=== PATIENT | female | born 1960 ===

== ENCOUNTER 2020-01-05 23:06 | Inpatient (IN) ==
[2020-01-05] MEDS ORDERED: SODIUM CHLORIDE 0.9% 1,000 ML IV STA (23:36)
[2020-01-05 23:49] LABS: Basophils % 0.2 % (0.0-0.8); Eosinophils # 0.1 10*3/uL (0.0-0.87); Eosinophils % 0.6 % (0.00-10.9); Hematocrit 25.7 VOL% (35.7-47.0); Hemoglobin 9.2 GM/DL (12.0-16.0); Immature Granulocytes % 3.3 %; Lymphocytes # 1.5 10*3/uL (1.4-4.0); Lymphocytes % 8.4 % (21.3-54.2); Mean Corpuscular HGB Conc 35.8 GM/DL (32-36); Mean Corpuscular Volume 102.4 FL (87-102); Mean Platelet Volume 10.6 FL (9.6-12.0); Monocytes % 4.7 % (1.7-12.7); Neutrophils % 82.8 % (38.7-73.9); Red Blood Count 2.51 MC/CUMM (3.8-5.5); Red Cell Distribution Width 17.5 % (9.3-17.3); White Blood Count 17.9 T/CUMM (4-12)
[2020-01-06 00:01] LABS: Platelet Count 98 T/CUMM (130-400)
[2020-01-06 00:07] LABS: Alanine Aminotransferase 54 U/L (13-56); Alkaline Phosphatase 200 U/L (45-117); Amylase 22 U/L (25-115); Aspartate Amino Transferase 87 U/L (0-37); Blood Urea Nitrogen 95 MG/DL (7-18); Estimated Glom Filtration Rate 10 ML/MIN; Glucose 119 MG/DL (74-106); Osmolality,Calculated 317.7 MOS/KG (273-304); Total Protein 7.6 G/DL (6.4-8.3); Troponin I < 0.015 NG/ML (0.00-0.045)
[2020-01-06 00:13] LABS: INR 2.2; PT Patient Result 23.1 SECS (9.8-11.9); Partial Thromboplastin Time 60.7 SECS (23.9-33.8)
[2020-01-06] MEDS ORDERED: cefTRIAXone 1,000 MG in SODIUM CHLORIDE 0.9% 100 ML IV STA ×2 (01:46→02:58)
[2020-01-06 02:43] LABS: Bacteria,Urine Occasional /HPF (Few); Bilirubin,Urine Moderate mg/dL (Negative); Blood, Urine Small mg/dL (Negative); Glucose,Urine (UA) Negative (Negative); Ketones,Urine Negative (Negative); Mucus,Urine Occasional /LPF (Occasional); Nitrite,Urine Negative (Negative); Protein,Urine Negative; RBC,Urine 1 /HPF (0-4); Squamous Epithelial Cell,Urine Occasional /HPF (0-10); Urine Appearance CLEAR (Clear); Urine Color Amber (Yellow); Urine Specific Gravity 1.014 (1.001-1.035); WBC,Urine 1 /HPF (0-6)
[2020-01-06] MEDS ORDERED: DEXTROSE 50% 25 GM/50 ML VIAL IV PRN (02:51)
[2020-01-06] MEDS ORDERED: GLUCAGON 1 MG VIAL IM PRN (02:51)
[2020-01-06] MEDS ORDERED: PHYTONADIONE 10 MG/1 ML AMP SUBCUT ONE (02:57)
[2020-01-06 03:05] LABS: Barbiturates Screen,Urine Negative (Negative); Benzodiazepines Screen,Urine Positive (Negative); Cannabinoid Screen,Urine Negative (Negative); Opiate Screen,Urine Negative (Negative); Phencyclidine Screen,Urine Negative (Negative)
[2020-01-06] MEDS ORDERED: SODIUM CHLORIDE 0.9% 1,000 ML IV SCH (03:30)
[2020-01-06 03:50] LABS: Segmented Neutrophils 83 % (50-85); Total Cells Counted 100
[2020-01-06 03:51] LABS: Band Neutrophils 2 % (0-10); Lymphocytes 9 % (20-55); Metamyelocytes 2 %
[2020-01-06] MEDS: SODIUM CHLOR 0.9% KCL 20 MEQ 20 MEQ/1,000 ML BAG IV SCH ×2 (04:41→14:51)
[2020-01-06 05:33] LABS: Basophils % 0.2 % (0.0-0.8); Eosinophils # 0.1 10*3/uL (0.0-0.87); Eosinophils % 0.6 % (0.00-10.9); Hematocrit 24.2 VOL% (35.7-47.0); Hemoglobin 8.8 GM/DL (12.0-16.0); Immature Granulocytes Absolute 0.52 #; Lymphocytes # 1.6 10*3/uL (1.4-4.0); Mean Corpuscular HGB Conc 36.4 GM/DL (32-36); Mean Corpuscular Volume 103.9 FL (87-102); Mean Platelet Volume 11.1 FL (9.6-12.0); Monocytes % 4.8 % (1.7-12.7); NRBC # 0.02 10*3/uL; Neutrophils % 82.4 % (38.7-73.9); Red Blood Count 2.33 MC/CUMM (3.8-5.5); Red Cell Distribution Width 17.7 % (9.3-17.3); White Blood Count 17.4 T/CUMM (4-12)
[2020-01-06 05:42] LABS: Platelet Count 81 T/CUMM (130-400)
[2020-01-06 06:03] LABS: Band Neutrophils 2 % (0-10); Hypochromasia 1+; Lymphocytes 3 % (20-55); Platelet Estimate Decreased; Segmented Neutrophils 90 % (50-85); Total Cells Counted 100
[2020-01-06 06:15] LABS: Albumin 1.8 G/DL (3.4-5.0); Bilirubin,Direct 21.13 MG/DL (0.0-0.20); Osmolality,Calculated 314.8 MOS/KG (273-304); Total Protein 7.1 G/DL (6.4-8.3)
[2020-01-06 06:16] LABS: Bilirubin,Indirect 4.2 MG/DL (0.0-1.0); Bilirubin,Total 25.3 MG/DL (0.2-1.0)
[2020-01-06 06:21] LABS: INR 2.4; PT Patient Result 24.5 SECS (9.8-11.9); Partial Thromboplastin Time 69.7 SECS (23.9-33.8)
[2020-01-06] MEDS ORDERED: PANTOPRAZOLE 40 MG VIAL IV SCH (09:00)
[2020-01-06 13:02] LABS: Hepatitis B Core IgM Quant 0.08 Index; Hepatitis B Surface Ag Quant < 0.10 Index; Hepatitis B Surface Ag Result Negative (Negative); Hepatitis C Virus Ab Quant 0.12 Index; Hepatitis C Virus Ab Result Negative (Negative)
[2020-01-06] MEDS: PHYTONADIONE 10 MG/1 ML AMP SUBCUT SCH (14:21)
[2020-01-06] MEDS ORDERED: ACETYLCYSTEINE IV ONE ×2 (15:00→16:00)
[2020-01-06] MEDS ORDERED: DEXTROSE 5% IV ONE ×2 (15:00→16:00)
[2020-01-06] MEDS ORDERED: ACETYLCYSTEINE INJ 6,000 MG in DEXTROSE 5% 1,000 ML IV ONE (20:00)
[2020-01-07] MEDS: ONDANSETRON 4 MG/2 ML VIAL IV PRN ×2 (00:12→19:06)
[2020-01-07] MEDS ORDERED: cefTRIAXone 2,000 MG in SYRINGE 1 EACH IV SCH (04:00)
[2020-01-07 05:26] LABS: Basophils # 0.1 10*3/uL (0.0-0.2); Basophils % 0.3 % (0.0-0.8); Eosinophils # 0.2 10*3/uL (0.0-0.87); Eosinophils % 0.9 % (0.00-10.9); Hematocrit 24.5 VOL% (35.7-47.0); Hemoglobin 8.8 GM/DL (12.0-16.0); Immature Granulocytes % 4.3 %; Immature Granulocytes Absolute 0.79 #; Lymphocytes # 1.4 10*3/uL (1.4-4.0); Lymphocytes % 7.3 % (21.3-54.2); Mean Corpuscular HGB Conc 35.9 GM/DL (32-36); Mean Corpuscular Volume 102.5 FL (87-102); Mean Platelet Volume 10.2 FL (9.6-12.0); Monocytes % 5.6 % (1.7-12.7); Neutrophils % 81.6 % (38.7-73.9); Platelet Count 87 T/CUMM (130-400); Red Blood Count 2.39 MC/CUMM (3.8-5.5); Red Cell Distribution Width 17.8 % (9.3-17.3); White Blood Count 18.6 T/CUMM (4-12)
[2020-01-07 05:36] LABS: INR 2.3; PT Patient Result 23.9 SECS (9.8-11.9); Partial Thromboplastin Time 61.9 SECS (23.9-33.8)
[2020-01-07 05:48] LABS: Hypochromasia 1+; Lymphocytes 3 % (20-55); Segmented Neutrophils 95 % (50-85); Total Cells Counted 100
[2020-01-07 05:49] LABS: Macrocytosis 1+; Platelet Estimate Decreased; Target Cells Few
[2020-01-07 05:52] LABS: Albumin 1.7 G/DL (3.4-5.0); Calcium 8.9 MG/DL (8.5-10.1); Total Protein 6.8 G/DL (6.4-8.3)
[2020-01-07 05:59] LABS: Bilirubin,Total 28.2 MG/DL (0.2-1.0)
[2020-01-07] MEDS: CIPROFLOXACIN INJ 400 MG in PREMIX 1 EACH IV SCH (06:13)
[2020-01-07] MEDS: SODIUM CHLORIDE 0.9% 1,000 ML IV SCH (07:22)
[2020-01-07] MEDS ORDERED: ETOMIDATE 20 MG/10 ML VIAL IV ONE (07:31)
[2020-01-07] MEDS ORDERED: ONDANSETRON 4 MG/2 ML VIAL ONE (07:31)
[2020-01-07] MEDS ORDERED: LIDOCAINE 2% 5 ML VIAL ONE (07:31)
[2020-01-07] MEDS ORDERED: propofoL 200 MG/20 ML VIAL IV ONE (07:31)
[2020-01-07] MEDS: PANTOPRAZOLE 40 MG VIAL IV SCH ×2 (09:03→20:45)
[2020-01-07] MEDS: PHYTONADIONE 10 MG/1 ML AMP SUBCUT SCH (09:04)
[2020-01-07] MEDS: metroNIDAZOLE INJ 500 MG in PREMIX 1 EACH IV SCH ×2 (09:48→17:03)
[2020-01-07] MEDS: POTASSIUM CHLORIDE INJ 30 MEQ in DEXTROSE 5% 1,000 ML IV SCH (14:34)
[2020-01-08] MEDS: metroNIDAZOLE INJ 500 MG in PREMIX 1 EACH IV SCH (01:56)
[2020-01-08] MEDS: CIPROFLOXACIN INJ 400 MG in PREMIX 1 EACH IV SCH (06:54)
[2020-01-08 07:12] LABS: Basophils # 0.1 10*3/uL (0.0-0.2); Basophils % 0.3 % (0.0-0.8); Eosinophils # 0.2 10*3/uL (0.0-0.87); Hematocrit 22.6 VOL% (35.7-47.0); Hemoglobin 7.9 GM/DL (12.0-16.0); Immature Granulocytes % 5.3 %; Immature Granulocytes Absolute 1.02 #; Lymphocytes % 10.3 % (21.3-54.2); Mean Corpuscular Volume 103.7 FL (87-102); Mean Platelet Volume 11.1 FL (9.6-12.0); Monocytes % 8.2 % (1.7-12.7); NRBC # 0.02 10*3/uL; Neutrophils % 74.9 % (38.7-73.9); Platelet Count 61 T/CUMM (130-400); Red Blood Count 2.18 MC/CUMM (3.8-5.5); Red Cell Distribution Width 18.2 % (9.3-17.3); White Blood Count 19.2 T/CUMM (4-12)
[2020-01-08 07:36] LABS: INR 2.1; PT Patient Result 21.5 SECS (9.8-11.9)
[2020-01-08 07:48] LABS: Albumin 1.4 G/DL (3.4-5.0); Bilirubin,Direct 19.02 MG/DL (0.0-0.20); Calcium 7.8 MG/DL (8.5-10.1); Osmolality,Calculated 309.8 MOS/KG (273-304); Total Protein 5.5 G/DL (6.4-8.3)
[2020-01-08] MEDS ORDERED: SODIUM CHLORIDE 0.9% 1,000 ML IV PRN ×2 (07:51→08:00)
[2020-01-08 07:52] LABS: Band Neutrophils 1 % (0-10); Lymphocytes 15 % (20-55); Segmented Neutrophils 82 % (50-85); Total Cells Counted 100
[2020-01-08 07:53] LABS: Acanthocytes Few; Polychromasia Few
[2020-01-08 07:55] LABS: Burr Cells 1+; Hypochromasia 1+; Platelet Estimate Adequate
[2020-01-08] MEDS: POTASSIUM CHLORIDE INJ 30 MEQ in DEXTROSE 5% 1,000 ML IV SCH (10:07)
[2020-01-08] MEDS: PHYTONADIONE 10 MG/1 ML AMP SUBCUT SCH (10:08)
[2020-01-08] MEDS: SODIUM CHLORIDE 0.9% 1,000 ML IV SCH (10:08)
[2020-01-08] MEDS: PANTOPRAZOLE 40 MG VIAL IV SCH ×2 (10:08→21:03)
[2020-01-08] MEDS: MEROPENEM 500 MG in SODIUM CHLORIDE 0.9% 100 ML IV SCH ×2 (10:16→21:02)
[2020-01-08 19:07] LABS: Hematocrit 28.3 VOL% (35.7-47.0); Hemoglobin 10.1 GM/DL (12.0-16.0)
[2020-01-09 05:25] LABS: Basophils # 0.1 10*3/uL (0.0-0.2); Basophils % 0.5 % (0.0-0.8); Eosinophils # 0.3 10*3/uL (0.0-0.87); Eosinophils % 1.5 % (0.00-10.9); Hematocrit 27.1 VOL% (35.7-47.0); Hemoglobin 9.9 GM/DL (12.0-16.0); Immature Granulocytes % 4.9 %; Immature Granulocytes Absolute 0.81 #; Lymphocytes # 1.2 10*3/uL (1.4-4.0); Lymphocytes % 7.2 % (21.3-54.2); Mean Corpuscular HGB Conc 36.5 GM/DL (32-36); Mean Corpuscular Volume 94.1 FL (87-102); NRBC # 0.02 10*3/uL; Neutrophils % 78.9 % (38.7-73.9); Red Blood Count 2.88 MC/CUMM (3.8-5.5); Red Cell Distribution Width 19.2 % (9.3-17.3); White Blood Count 16.6 T/CUMM (4-12)
[2020-01-09 05:27] LABS: Platelet Count 49 T/CUMM (130-400)
[2020-01-09] MEDS: POTASSIUM CHLORIDE INJ 30 MEQ in DEXTROSE 5% 1,000 ML IV SCH ×2 (05:52→08:55)
[2020-01-09 05:58] LABS: Band Neutrophils 1 % (0-10); Eosinophils 1 % (0-10); Lymphocytes 5 % (20-55); Segmented Neutrophils 87 % (50-85); Total Cells Counted 100
[2020-01-09 05:59] LABS: Hypochromasia 1+
[2020-01-09 06:00] LABS: Calcium 8.6 MG/DL (8.5-10.1); Osmolality,Calculated 303.5 MOS/KG (273-304)
[2020-01-09 06:01] LABS: Macrocytosis 1+
[2020-01-09 06:03] LABS: Burr Cells Slight
[2020-01-09 06:04] LABS: Acanthocytes Few; Platelet Estimate Decreased
[2020-01-09 06:07] LABS: Albumin 1.7 G/DL (3.4-5.0); Calcium 8.6 MG/DL (8.5-10.1); Osmolality,Calculated 301.5 MOS/KG (273-304)
[2020-01-09] MEDS: PHYTONADIONE 10 MG/1 ML AMP SUBCUT SCH (08:56)
[2020-01-09] MEDS: MEROPENEM 500 MG in SODIUM CHLORIDE 0.9% 100 ML IV SCH ×2 (08:56→21:48)
[2020-01-09] MEDS: PANTOPRAZOLE 40 MG VIAL IV SCH ×2 (08:56→21:48)
[2020-01-09] MEDS: SODIUM CHLORIDE 0.9% 1,000 ML IV SCH (08:57)
[2020-01-10] MEDS: POTASSIUM CHLORIDE INJ 30 MEQ in DEXTROSE 5% 1,000 ML IV SCH ×3 (04:23→22:20)
[2020-01-10] MEDS: SODIUM CHLORIDE 0.9% 1,000 ML IV SCH ×2 (05:12→10:22)
[2020-01-10 06:32] LABS: INR 2.2; PT Patient Result 23.1 SECS (9.8-11.9)
[2020-01-10 06:46] LABS: Albumin 1.8 G/DL (3.4-5.0); Calcium 9.3 MG/DL (8.5-10.1); Osmolality,Calculated 292.4 MOS/KG (273-304); Total Protein 6.4 G/DL (6.4-8.3)
[2020-01-10 07:09] LABS: Osmolality,Calculated 294.2 MOS/KG (273-304)
[2020-01-10 07:28] LABS: Bilirubin,Total 28.2 MG/DL (0.2-1.0)
[2020-01-10 08:17] LABS: Basophils # 0.1 10*3/uL (0.0-0.2); Basophils % 0.4 % (0.0-0.8); Eosinophils # 0.2 10*3/uL (0.0-0.87); Eosinophils % 1.5 % (0.00-10.9); Hematocrit 28.5 VOL% (35.7-47.0); Hemoglobin 10.3 GM/DL (12.0-16.0); Immature Granulocytes % 6.7 %; Immature Granulocytes Absolute 1.11 #; Lymphocytes # 1.2 10*3/uL (1.4-4.0); Lymphocytes % 7.2 % (21.3-54.2); Mean Corpuscular HGB Conc 36.1 GM/DL (32-36); Mean Corpuscular Volume 94.4 FL (87-102); Mean Platelet Volume 11.6 FL (9.6-12.0); Monocytes % 7.4 % (1.7-12.7); NRBC # 0.02 10*3/uL; Neutrophils % 76.8 % (38.7-73.9); Red Blood Count 3.02 MC/CUMM (3.8-5.5); Red Cell Distribution Width 19.6 % (9.3-17.3); White Blood Count 16.5 T/CUMM (4-12)
[2020-01-10 08:18] LABS: Platelet Count 48 T/CUMM (130-400)
[2020-01-10 09:34] LABS: Band Neutrophils 2 % (0-10); Lymphocytes 4 % (20-55); Metamyelocytes 1 %; Segmented Neutrophils 86 % (50-85); Total Cells Counted 100
[2020-01-10 09:35] LABS: Burr Cells Few; Macrocytosis 1+
[2020-01-10 09:36] LABS: Hypochromasia 2+; Platelet Estimate Decreased; Target Cells Slight
[2020-01-10] MEDS: PANTOPRAZOLE 40 MG VIAL IV SCH ×2 (10:22→22:21)
[2020-01-10] MEDS: MEROPENEM 500 MG in SODIUM CHLORIDE 0.9% 100 ML IV SCH ×2 (10:22→22:21)
[2020-01-10] MEDS: LACTULOSE 20 GM/30 ML UDCUP PO SCH ×2 (12:52→22:20)
[2020-01-11] MEDS: POTASSIUM CHLORIDE INJ 30 MEQ in DEXTROSE 5% 1,000 ML IV SCH ×2 (06:20→15:23)
[2020-01-11 06:27] LABS: Basophils # 0.1 10*3/uL (0.0-0.2); Basophils % 0.4 % (0.0-0.8); Eosinophils # 0.3 10*3/uL (0.0-0.87); Eosinophils % 1.4 % (0.00-10.9); Hematocrit 28.4 VOL% (35.7-47.0); Hemoglobin 10.2 GM/DL (12.0-16.0); Immature Granulocytes % 7.6 %; Immature Granulocytes Absolute 1.41 #; Lymphocytes # 1.1 10*3/uL (1.4-4.0); Lymphocytes % 5.7 % (21.3-54.2); Mean Corpuscular HGB Conc 35.9 GM/DL (32-36); Mean Corpuscular Volume 94.7 FL (87-102); Mean Platelet Volume 11.3 FL (9.6-12.0); Monocytes % 8.2 % (1.7-12.7); Neutrophils % 76.7 % (38.7-73.9); Platelet Count 45 T/CUMM (130-400); Red Cell Distribution Width 19.3 % (9.3-17.3); White Blood Count 18.5 T/CUMM (4-12)
[2020-01-11 06:36] LABS: INR 1.9; PT Patient Result 19.8 SECS (9.8-11.9); Partial Thromboplastin Time 73.2 SECS (23.9-33.8)
[2020-01-11 06:42] LABS: Calcium 9.3 MG/DL (8.5-10.1); Osmolality,Calculated 292.5 MOS/KG (273-304)
[2020-01-11 06:51] LABS: Eosinophils 3 % (0-10); Lymphocytes 2 % (20-55); Metamyelocytes 1 %; Segmented Neutrophils 89 % (50-85); Total Cells Counted 100
[2020-01-11 06:52] LABS: Hypochromasia 2+
[2020-01-11 06:53] LABS: Macrocytosis 1+; Target Cells Slight
[2020-01-11 06:54] LABS: Anisocytosis 1+; Burr Cells Few
[2020-01-11 06:55] LABS: Platelet Estimate Decreased; Spherocytes Slight
[2020-01-11] MEDS: SODIUM CHLORIDE 0.9% 1,000 ML IV SCH (08:53)
[2020-01-11] MEDS: PANTOPRAZOLE 40 MG VIAL IV SCH ×2 (08:54→21:26)
[2020-01-11] MEDS: LACTULOSE 20 GM/30 ML UDCUP PO SCH ×2 (08:54→21:25)
[2020-01-11] MEDS: MEROPENEM 500 MG in SODIUM CHLORIDE 0.9% 100 ML IV SCH ×2 (08:54→21:28)
[2020-01-11] MEDS ORDERED: SODIUM CHLORIDE 0.9% 1,000 ML IV PRN (09:48)
[2020-01-11 10:07] LABS: Albumin 1.8 G/DL (3.4-5.0); Bilirubin,Direct 13.72 MG/DL (0.0-0.20); Bilirubin,Indirect 12.9 MG/DL (0.0-1.0); Total Protein 7.1 G/DL (6.4-8.3)
[2020-01-11 10:10] LABS: Bilirubin,Total 26.6 MG/DL (0.2-1.0)
[2020-01-11 15:13] LABS: Neutrophils,Peritoneal Fluid 85 %
[2020-01-11 15:14] LABS: RBC,Peritoneal Fluid 3346 T/CUMM
[2020-01-12 06:14] LABS: Basophils % 0.3 % (0.0-0.8); Eosinophils # 0.4 10*3/uL (0.0-0.87); Eosinophils % 2.4 % (0.00-10.9); Hematocrit 24.4 VOL% (35.7-47.0); Immature Granulocytes % 7.5 %; Immature Granulocytes Absolute 1.16 #; Lymphocytes # 1.2 10*3/uL (1.4-4.0); Lymphocytes % 7.6 % (21.3-54.2); Mean Corpuscular HGB Conc 36.9 GM/DL (32-36); Mean Corpuscular Volume 93.5 FL (87-102); Mean Platelet Volume 11.1 FL (9.6-12.0); Monocytes % 10.3 % (1.7-12.7); NRBC # 0.02 10*3/uL; Neutrophils % 71.9 % (38.7-73.9); Platelet Count 40 T/CUMM (130-400); Red Blood Count 2.61 MC/CUMM (3.8-5.5); Red Cell Distribution Width 19.1 % (9.3-17.3); White Blood Count 15.5 T/CUMM (4-12)
[2020-01-12 06:30] LABS: Osmolality,Calculated 291.5 MOS/KG (273-304); Total Protein 5.7 G/DL (6.4-8.3)
[2020-01-12 06:35] LABS: Band Neutrophils 1 % (0-10); Bilirubin,Total 23.6 MG/DL (0.2-1.0); Eosinophils 5 % (0-10); Hypochromasia Slight; Lymphocytes 5 % (20-55); Platelet Estimate Decreased; Segmented Neutrophils 79 % (50-85); Total Cells Counted 100
[2020-01-12] MEDS: SODIUM CHLORIDE 0.9% 1,000 ML IV SCH (07:30)
[2020-01-12] MEDS ORDERED: ALBUMIN 25% 50 GM in PREMIX 1 EACH IV ONE (08:00)
[2020-01-12] MEDS: PANTOPRAZOLE 40 MG VIAL IV SCH ×2 (11:19→22:07)
[2020-01-12] MEDS: LACTULOSE 20 GM/30 ML UDCUP PO SCH ×2 (11:20→22:07)
[2020-01-12] MEDS: MIDODRINE 5 MG TABLET PO SCH ×3 (11:23→22:07)
[2020-01-12] MEDS: MEROPENEM 500 MG in SODIUM CHLORIDE 0.9% 100 ML IV SCH ×2 (11:24→22:07)
[2020-01-12] MEDS: POTASSIUM CHLORIDE INJ 10 MEQ in DEXTROSE 5% LACTATED RINGERS 1,000 ML IV SCH ×2 (11:26→23:58)
[2020-01-12] MEDS: OCTREOTIDE 100 MCG/ML SYRINGE SUBCUT SCH ×3 (11:31→22:08)
[2020-01-12 15:45] LABS: Alpha-1-Antitrypsin, Serum 159 mg/dL (100 - 190)
[2020-01-13 06:09] LABS: Basophils # 0.1 10*3/uL (0.0-0.2); Basophils % 0.5 % (0.0-0.8); Eosinophils # 0.5 10*3/uL (0.0-0.87); Eosinophils % 3.1 % (0.00-10.9); Hematocrit 25.3 VOL% (35.7-47.0); Hemoglobin 9.1 GM/DL (12.0-16.0); Immature Granulocytes Absolute 1.54 #; Lymphocytes # 1.6 10*3/uL (1.4-4.0); Lymphocytes % 9.5 % (21.3-54.2); Mean Corpuscular Volume 94.1 FL (87-102); Mean Platelet Volume 10.5 FL (9.6-12.0); Monocytes % 10.2 % (1.7-12.7); Neutrophils % 67.7 % (38.7-73.9); Red Blood Count 2.69 MC/CUMM (3.8-5.5); Red Cell Distribution Width 18.8 % (9.3-17.3); White Blood Count 17.1 T/CUMM (4-12)
[2020-01-13 06:11] LABS: Platelet Count 43 T/CUMM (130-400)
[2020-01-13 06:30] LABS: Band Neutrophils 3 % (0-10); Eosinophils 4 % (0-10); Hypochromasia 1+; Lymphocytes 6 % (20-55); Platelet Estimate Decreased; Segmented Neutrophils 79 % (50-85); Total Cells Counted 100
[2020-01-13 06:31] LABS: Microcytosis Slight
[2020-01-13 06:43] LABS: Albumin 2.5 G/DL (3.4-5.0); Calcium 9.1 MG/DL (8.5-10.1); Osmolality,Calculated 293.7 MOS/KG (273-304)
[2020-01-13 06:45] LABS: Bilirubin,Total 28.4 MG/DL (0.2-1.0)
[2020-01-13] MEDS: SODIUM CHLORIDE 0.9% 1,000 ML IV SCH (07:30)
[2020-01-13] MEDS: LACTULOSE 20 GM/30 ML UDCUP PO SCH (09:52)
[2020-01-13] MEDS: MIDODRINE 5 MG TABLET PO SCH ×2 (09:52→15:20)
[2020-01-13] MEDS: PANTOPRAZOLE 40 MG VIAL IV SCH (09:55)
[2020-01-13] MEDS: OCTREOTIDE 100 MCG/ML SYRINGE SUBCUT SCH ×2 (10:00→15:23)
[2020-01-13] MEDS: MEROPENEM 500 MG in SODIUM CHLORIDE 0.9% 100 ML IV SCH (10:00)
[2020-01-13] MEDS: POTASSIUM CHLORIDE INJ 10 MEQ in DEXTROSE 5% LACTATED RINGERS 1,000 ML IV SCH (10:48)
[2020-01-13 16:10] VITALS: BP 115/74
== END 2020-01-13 19:13 | disposition hospice, home (50) | DRG 720 ==
LOC: EDUNIT# → EDBD → N.ED 23:06 → N.EDINP 01-06 03:02 → SUATTDRO 01-06 03:02 → N.3E 01-06 03:17
PROVIDERS: ADMIT Hospitalist; ATTEND Family Medicine